=== PATIENT | male | born 1995 | race Caucasian/White ===

== ENCOUNTER 2021-07-11 12:46 | Emergency (ER) | payer OTHER ==
[~2021-07-11] VITALS: Ht 182.9 cm; Wt 109.1 kg
[2021-07-11 12:59] VITALS: O2SAT 99
[2021-07-11] MEDS ORDERED: NS 1,000 ML IV ONE ×2 (13:20→13:55)
[2021-07-11] MEDS ORDERED: ONDANSETRON 4MG/2ML VIAL IV ONE (13:20)
[2021-07-11] MEDS ORDERED: ALBUTEROL 90 MCG/ACT 8GM HFA INHALER INH ONE (13:30)
[2021-07-11] MEDS ORDERED: IBUPROFEN 600MG TAB PO ONE (13:45)
[2021-07-11] MEDS ORDERED: cefTRIAXone SOD 1 GM in D5W MINI-BAG PLUS 50 ML IV ONE (13:55)
[2021-07-11] MEDS ORDERED: AZITHROMYCIN INJ 500 MG, VIAL MATE ADAPTER 1 EACH in NS 250 ML IV ONE (13:55)
[2021-07-11 14:11] LABS: HEMATOCRIT 41.5 % (42.0-52.0); HEMOGLOBIN 14.6 g/dl (13.5-17.5); MEAN CORPUSCULAR HEMOGLOBIN 31.3 pg (27.0-33.0); MEAN CORPUSCULAR HGB CONC 35.2 g/dl (32.0-36.5); MEAN CORPUSCULAR VOLUME 88.9 fl (80.0-96.0); PLATELET COUNT, AUTOMATED 219 10^3/uL (150-450); RED BLOOD COUNT 4.67 10^6/uL (4.30-6.10); WHITE BLOOD COUNT 14.6 10^3/uL (4.0-10.0)
[2021-07-11 14:29] LABS: BLOOD UREA NITROGEN 10 MG/DL (7-18); CALCIUM LEVEL 9.1 MG/DL (8.5-10.1); CARBON DIOXIDE LEVEL 23 MEQ/L (21-32); CHLORIDE LEVEL 100 MEQ/L (98-107); CREATININE FOR GFR 1.19 MG/DL (0.70-1.30); GLOMERULAR FILTRATION RATE > 60.0 (>60); GLUCOSE, FASTING 120 MG/DL (70-100); POTASSIUM SERUM 4.1 MEQ/L (3.5-5.1); SODIUM LEVEL 136 MEQ/L (136-145)
[2021-07-11 15:03] LABS: ATYPICAL LYMPH 5 % (0-5); LYMPHOCYTES 9 % (16-44); MONOCYTES 13 % (0-5); NEUTROPHILS 60 % (28-66)
[2021-07-11 15:07] LABS: DOHLE BODIES 1+
[2021-07-11 15:08] LABS: PLATELET ESTIMATE NORMAL (NORMAL)
[2021-07-11 15:39] VITALS: BP 142/69
[2021-07-11] MEDS ORDERED: CEFD300C41 PO ×2 (15:46→15:49)
[2021-07-11] MEDS ORDERED: ZITHTAB PO (15:46)
[2021-07-11] MEDS ORDERED: ZITH250T PO (15:49)
[2021-07-11] MEDS ORDERED: BENZ200C70 PO (15:49)
[2021-07-11] MEDS ORDERED: VENTAER INH (15:49)
[2021-07-11] MEDS ORDERED: ONDA4TAB6 PO (15:49)
== END 2021-07-11 16:12 | disposition home or self-care (01) ==
LOC: M ED 12:46
DX: J12.3 Human metapneumovirus pneumonia (principal); Z79.899 Other long term (current) drug therapy
CPT/HCPCS: 36415; 71045; 80048; 83605; 85025; 87040; 87798; 94640; 96365; 96367; 96375; 99284; J0456; J0696; J2405